=== PATIENT | male | born 1940 | race Caucasian/White ===

== ENCOUNTER 2017-06-02 10:37 | Day surgery (SDC) | payer OTHER ==
[2017-06-02] MEDS ORDERED: Midazolam 2 MG/2 ML VIAL ONE (11:38)
[2017-06-02] MEDS ORDERED: Iohexol 350mg/ml 100 ML ONE ×2 (11:53→11:55)
--- NOTE | 2017-06-02 22:02 | CARDCATH ---
PROCEDURE DATE: 06/02/2017 INDICATION: Unstable angina, positive stress test. HISTORY: Mr. Jesus Bourgeois is a pleasant 76-year-old gentleman who was admitted to [facility] with complaints of exertional chest pain and shortness of breath accompanied with some arm swelling. He was ruled out for acute coronary syndrome with serial cardiac enzymes and subsequently underwent nuclear stress test, which showed ischemia involving the septal and inferolateral reyez. He was, therefore, brought to the Cardiac Early Morning for further evaluation of his coronary anatomy. PROCEDURES PERFORMED: Left heart catheterization with selective left and right coronary angiograms via left radial approach, 6-[place] left radial artery, left ventriculogram, wrist band for hemostasis. TECHNIQUES FOR PROCEDURE: After obtaining informed consent, patient was brought to the cardiac cath suite in post-absorptive, non-sedated state. Patient was prepped and draped in the usual sterile fashion. A 2% lidocaine was used for infiltration of anesthesia. Using modified Seldinger technique, a 6-[place] sheath was introduced into left radial artery. Subsequently over a J-wire, JL4 and JR4 diagnostic catheters were used to engage the left and right coronary systems. Angiograms were obtained in different orthogonal views. Subsequently, LV gram was obtained in the PATTON view. Hemodynamics and saturations were obtained. No pullback gradients were noted. CORONARY ANATOMY: Left main, large-sized vessel, bifurcates into left anterior descending and left circumflex coronary artery. Left main has a distal 30% stenosis. Left circumflex is a large-sized vessel, gives off 2 medium-sized obtuse marginal and a third large obtuse marginal branch with mild luminal irregularities. Left anterior descending is a large-sized vessel, gives off a small diagonal and a small septal structural mill supervisor. Right after the septal structural mill supervisor, has a 65% stenosis with a post-stenotic stasis of blood and then gives off 3 small diagonal branches and into a small-sized branch. Right coronary artery, large-sized vessel, gives off RV branch and the mid 55% stenosis. Left ventriculogram showed ejection fraction 45% to 50%, with EDP of 12 mmHg. IMPRESSION: Moderate 2-vessel coronary artery disease, mild left ventricular systolic dysfunction. RECOMMENDATIONS: Continue aggressive medical management, risk factor modification, keep the patient on dual antiplatelet therapy, aspirin, Plavix, statins, beta-blockers, and SINA inhibitors. If patient has breakthrough symptoms of ischemia on maximum medical therapy, consider PCI of LAD plus/minus RCA. Thank you, Dr. Bell, for letting me participate in the care of your patient. Gerald Castellano MD cc: Jack Bell MD
== END 2017-06-02 16:15 | disposition short-term general hospital (02) ==
LOC: C.CATHLAB 10:37
PROVIDERS: ATTEND Internal Medicine Interventional Cardiology
DX: I25.110 Atherosclerotic heart disease of native coronary artery with unstable angina pectoris (principal)
CPT/HCPCS: 93458; C1769; C1887; J1644; J2250; J3010; Q9967